=== PATIENT | male | born 1985 | race African-American/Black ===

== ENCOUNTER 2024-01-23 20:59 | Emergency (ER) | payer OTHER ==
[~2024-01-23] VITALS: Ht 172.7 cm; Wt 83.0 kg
[2024-01-23 21:05] VITALS: O2SAT 98
[2024-01-23 21:40] VITALS: TEMP 98.7; O2SAT 100
[2024-01-23] MEDS: DIPHENHYDRAMINE 25MG CAPSULE PO ONE (22:30)
[2024-01-24] MEDS ORDERED: HYDR28.485 RC (00:10)
[2024-01-24 00:53] VITALS: BP 112/73; PULSE 98; RESP 16
== END 2024-01-24 00:59 | disposition home or self-care (01) ==
LOC: ER 20:59
DX: A51.0 Primary genital syphilis (principal); F17.200 Nicotine dependence, unspecified, uncomplicated
CPT/HCPCS: 99283; 86593; 86592; Q0163

== ENCOUNTER 2024-01-24 19:10 | Emergency (ER) | payer OTHER ==
[~2024-01-24] VITALS: Ht 172.7 cm; Wt 81.9 kg
[~2024-01-24 19:10] MED LIST: HYDR28.485 RC
[2024-01-24 19:29] VITALS: TEMP 97.9; O2SAT 100
[2024-01-24 21:02] VITALS: BP 118/70; PULSE 60; RESP 20; O2SAT 99
[2024-01-24] MEDS: PENICILLIN G BENZATHINE 2,400,000 UNITS/4ML SYR IM ONE (21:02)
== END 2024-01-24 21:03 | disposition home or self-care (01) ==
LOC: ER 19:10
DX: A51.0 Primary genital syphilis (principal)
CPT/HCPCS: 99283; 96372; J0561

== ENCOUNTER 2024-02-01 17:54 | Emergency (ER) | payer OTHER ==
[~2024-02-01] VITALS: Ht 172.7 cm; Wt 82.0 kg
[2024-02-01 18:02] VITALS: O2SAT 99
[2024-02-01 18:14] VITALS: BP 135/73; PULSE 80; RESP 16; TEMP 98; O2SAT 99
[2024-02-01] MEDS: PENICILLIN G BENZATHINE 2,400,000 UNITS/4ML SYR IM ONE (19:10)
== END 2024-02-01 19:15 | disposition home or self-care (01) ==
LOC: ER 17:54
DX: A51.0 Primary genital syphilis (principal)
CPT/HCPCS: 99283; 96372; J0561

== ENCOUNTER 2024-05-06 22:02 | Emergency (ER) | payer OTHER, MEDICAID ==
[~2024-05-06] VITALS: Ht 172.7 cm; Wt 81.0 kg
[2024-05-06 22:10] VITALS: BP 123/89; PULSE 105; RESP 16; TEMP 98; O2SAT 98
[2024-05-06 23:49] LABS: CLARITY URINE CLEAR (CLEAR); COLOR URINE YELLOW (YELLOW); GLUCOSE URINE NEGATIVE (NEGATIVE); KETONES URINE NEGATIVE (NEGATIVE); LEUKOCYTE ESTERASE URINE NEGATIVE (NEGATIVE); NITRITE URINE NEGATIVE (NEGATIVE); OCCULT BLOOD URINE NEGATIVE (NEGATIVE); PROTEIN URINE TRACE (NEGATIVE); SPECIFIC GRAVITY URINE 1.031 (1.005-1.030)
[2024-05-07 03:26] LABS: BACTERIA URINE NONE SEEN; RBC URINE 0-2 /hpf (0-2); SQUAMOUS EPITHELIAL CELL URINE NONE SEEN /lpf (RARE/1+); WBC URINE 0-2 /hpf (0-2)
== END 2024-05-07 00:45 | disposition left against medical advice (07) ==
LOC: ER 22:02
DX: R68.89 Other general symptoms and signs (principal); Z53.21 Procedure and treatment not carried out due to patient leaving prior to being seen by health care provider
CPT/HCPCS: 81003

== ENCOUNTER 2024-05-17 15:12 | Emergency (ER) | payer OTHER, MEDICAID ==
[~2024-05-17] VITALS: Ht 175.3 cm; Wt 75.0 kg
[2024-05-17 15:15] VITALS: O2SAT 100
[2024-05-17 15:26] VITALS: BP 104/60; PULSE 98; RESP 18; TEMP 98.4; O2SAT 96
== END 2024-05-17 15:23 | disposition left against medical advice (07) ==
LOC: ER 15:12
DX: M25.532 Pain in left wrist (principal); M25.562 Pain in left knee; Z53.21 Procedure and treatment not carried out due to patient leaving prior to being seen by health care provider
CPT/HCPCS: 73110; 73562; 99284